=== PATIENT | male | born 1945 | race Caucasian/White ===

== ENCOUNTER 2018-05-29 08:07 | Outpatient (CLI) | payer MEDICARE, SELFPAY ==
[2018-05-29 10:10] LABS: Hemoglobin A1C 8.5 % (4.5-6.2)
[2018-05-29 10:53] LABS: Cholesterol 170 mg/dL (50-200); HDL Cholesterol 59 mg/dL (40-60); LDL CHOLESTEROL 84 mg/dL (<100); Triglyceride 153 mg/dL (30-150)
== END 2018-05-29 08:08 ==
PROVIDERS: PCP Family Medicine; Visit Provider Family Medicine
DX: E11.9 Type 2 diabetes mellitus without complications (principal)
CPT/HCPCS: 36415; 80061; 83721; 83036

== ENCOUNTER 2018-11-11 15:31 | Outpatient (CLI) | payer MEDICARE, SELFPAY ==
--- NOTE | 2018-11-11 15:36 | DI.RAD_ITS ---
SYMPTOM/DIAGNOSIS: NEW ONSET LT SCIATICA, M54.30 LUMBAR SPINE: AP, lateral and bilateral oblique views. There are five lumbar type vertebral bodies. There is normal alignment. No spondylolysis or spondylolisthesis is seen. There is mild narrowing of the L 4-5 disc space. Mild endplate osteophytes are present in the lumbar spine. There are degenerative changes of the facets. No acute fractures or subluxations are seen. Extensive calcification of the abdominal aorta is normal. IMPRESSION: Mild degenerative changes in the lumbar spine.
== END 2018-11-11 15:51 ==
PROVIDERS: PCP Family Medicine; Visit Provider Family Medicine
DX: M54.32 Sciatica, left side (principal); M47.816 Spondylosis without myelopathy or radiculopathy, lumbar region
CPT/HCPCS: 36415; 80048; 72110

== ENCOUNTER 2018-12-28 08:32 | Outpatient (CLI) | payer MEDICARE, SELFPAY ==
[2018-12-28 10:55] LABS: Anion Gap 8.2 mmol/L (3-11); BUN 14 mg/dL (7-18); CO2 27.8 mmol/L (21.0-32.0); CREATININE 1.12 mg/dL (0.70-1.30); Calcium 8.9 mg/dL (8.5-10.1); Chloride 102 mmol/L (98-107); Glucose 346 mg/dL (70-100); Potassium 4.4 mmol/L (3.5-5.1); Sodium 138 mmol/L (136-145)
== END 2018-12-28 08:52 ==
PROVIDERS: PCP Family Medicine; Visit Provider Family Medicine
DX: E11.9 Type 2 diabetes mellitus without complications (principal)
CPT/HCPCS: 36415; 80048

== ENCOUNTER 2019-03-01 14:05 | Emergency (ER) | payer MEDICARE, SELFPAY ==
[2019-03-01] VITALS (49 sets, daily range): BP systolic 139–211; BP diastolic 50–183; PULSE 55–84; RESP 11–38; TEMP 36.8; O2SAT 91–97
--- NOTE | 2019-03-01 14:56 | DI.RAD_ITS ---
SYMPTOMS/DIAGNOSIS: SHORTNESS OF BREATH, ? ACUTE DISEASE CHEST X-RAY, FRONTAL AND LATERAL VIEWS: Comparison is 03/02/11. The heart is normal in size. The lungs are clear. The mediastinal structures and pleura appear intact. IMPRESSION: Normal chest.
--- NOTE | 2019-03-01 14:57 | W.ED.GENAD ---
Discharge Plan Disposition Patient Disposition: [facility] Condition: Stable Discharge Details Chief Complaint: GenMedical Clinical Impression: NSTEMI (non-ST elevated myocardial infarction), CHF (congestive heart failure), Peripheral edema Primary Care Provider: Elliot Tabares ED Provider: Tresa Peña Home Meds and New Rx's Prescriptions: No Action Novolin N NPH U-100 Insulin 100 unit/mL suspension 125 unit Sub-Q BID MDD 300 units 30 Days Qty: 1 RF: 11 insulin syringe-needle U-100 1/2 mL 28 gauge syringe 1 ea Miscellaneous BID Qty: 100 RF: 6 cyclobenzaprine 10 mg tablet 10 mg PO TID PRN (Reason: muscle spasm) Qty: 90 RF: 0 aspirin [Aspir-81] 81 MG tablet,delayed release (DR/EC) 81 mg PO DAILY RF: 0 nitroglycerin [Nitrostat] 0.4 MG tablet, sublingual 0.4 mg Sublingual RF: 0 garlic 1 EACH capsule 1 ea PO DAILY RF: 0 acetaminophen [Tylenol] 325 MG tablet 650 mg PO Q6H PRN RF: 0 flaxseed oil 1,000 MG capsule 1,000 mg PO DAILY RF: 0 diltiazem HCl 180 MG capsule,extended release 24hr 180 mg PO DAILY 30 Days Qty: 30 RF: 11 blood-glucose meter [True Metrix Glucose Meter] 1 EACH misc Miscellaneous Qty: 1 RF: 0 True Metrix Glucose Test Strip 1 EACH strip 1 ea Miscellaneous BID Qty: 200 RF: 11 lancets 1 EACH misc 1 ea Miscellaneous BID Qty: 200 RF: 3 ranitidine HCl [Zantac Maximum Strength] 150 MG tablet 150 mg PO BID RF: 0 atenolol 50 MG tablet 50 mg PO DAILY 90 Days Qty: 90 RF: 3 zinc gluconate 100 MG tablet 200 mg PO DAILY RF: 0 magnesium oxide 250 MG tablet 250 mg PO BID Qty: 180 RF: 3 turmeric root extract 1 EACH capsule 1 ea PO DAILY RF: 0 lovastatin 40 mg tablet 40 mg PO DAILY Qty: 90 RF: 3 ergocalciferol (vitamin D2) [Vitamin D2] 50,000 unit capsule 50,000 unit PO Q7D Qty: 12 RF: 3 losartan 50 mg tablet 50 mg PO DAILY Qty: 90 RF: 3 Discharge Data Discharge Date/Time-TO BE ENTERED AT DEPARTURE: 03/01/19 19:21 Medical Decision Making 73-year-old male with a history of hypertension, fibromyalgia, diabetes, COPD, Meléndez's esophagus, atrial fibrillation and myocardial infarction who presents with bilateral leg swelling for 2 weeks and intermittent chest pain, shortness of breath and dizziness for the past 2 days. No complaints of chest pain or shortness of breath today. Referred from PCP office today for concern about heart failure. Blood pressure mildly elevated, oxygen saturation 93% on arrival, remainder vitals within normal limits. Lungs clear to auscultation. He has 2+ pitting edema bilateral lower extremities. EKG notes a rate of 63 and sinus with T wave inversion in V2 through V5 which is seen in previous EKG 2018. There appears to be a new right bundle branch block compared to previous EKG 2018. Labs ordered on arrival and note a troponin of 0.24 and BNP of 953. Chest x-ray negative. [facility] cardiology paged. Patient has no complaints of chest pain or shortness of breath at this time but with significant peripheral edema, will give a dose of 40 mg Lasix IV. He has no EKG changes so unsure at this time if the elevated troponin is due to CHF but concern for NSTEMI. 1729 --discussed with [facility] cardiology -although patient has peripheral edema, clinically does not appear to be due to acute CHF. Recommends treatment for NSTEMI. As patient is hemodynamically stable with no acute EKG changes, no indication for emergent transfer at this time but do accept patient for transfer once a bed available. Accepting physician Dr. Huggins. 1899 --repeat troponin downtrending to 0.22. Patient has a bed available now at [facility] and EMS now here to take him at this time. Patient denies any acute complaints at this time and is hemodynamically stable. Patient is agreeable with plan for transfer. Medical Records Medical records reviewed: Yes I reviewed the patient's medical records. Imaging Data Radiologic Study: Radiologist's impression: CHEST X-RAY, FRONTAL AND LATERAL VIEWS: Comparison is 03/02/11. The heart is normal in size. The lungs are clear. The mediastinal structures and pleura appear intact. IMPRESSION: Normal chest. Lab Data Lab results reviewed: Yes I reviewed the patient's lab results. Laboratory Tests Range/Units 03/01/19 03/01/19 03/01/19 14:50 14:50 14:50 WBC (4.4-10.8) k/cumm 5.57 RBC (4.50-6.00) m/cumm 4.48 L Hgb (13.5-17.5) g/dL 14.2 Hct (40.0-50.0) % 42.3 MCV (80-95) fL 94.4 MCH (27.0-33.0) pg 31.7 MCHC (32.0-36.0) g/dL 33.6 RDW (11.8-14.1) % 12.8 Plt Count (130-400) x1000/uL 159 MPV (8.0-11.0) fL 10.5 Immature Gran % 0.2 Neutrophils % 61.9 Lymphocytes % 20.5 Monocytes % 12.9 Eosinophils % 4.3 Basophils % 0.2 Absolute Neutrophils (1.2-6.7) k/cumm 3.45 Absolute Lymphocytes (1.2-3.4) k/cumm 1.14 L Absolute Monocytes (0.11-0.7) k/cumm 0.72 H Absolute Eosinophils (0.0-0.7) k/cumm 0.24 Absolute Basophils (0.0-0.2) k/cumm 0.01 PT (9.3-11.0) sec 10.3 INR (0.9-1.1) 1.0 APTT (21.0-31.4) sec 20.7 L Sodium (136-145) mmol/L 139 Potassium (3.5-5.1) mmol/L 4.0 Chloride (98-107) mmol/L 103 Carbon Dioxide (21.0-32.0) mmol/L 25.9 Anion Gap (3-11) mmol/L 10.1 BUN (7-18) mg/dL 14 Creatinine (0.70-1.30) mg/dL 1.12 Estimated GFR/1.73 m2 (mL/min/1.73m2) >= 60.00 Glucose (70-100) mg/dL 146 H Calcium (8.5-10.1) mg/dL 9.7 Magnesium (1.8-2.4) mg/dL 1.7 L Total Bilirubin (0.2-1.0) mg/dL 0.5 Conjugated Bilirubin (0.00-0.20) mg/dL 0.16 AST (15-37) U/L 35 ALT (12-78) U/L 48 Alkaline Phosphatase (46-116) U/L 87 Troponin I (0.00-0.06) ng/mL 0.24 H* NT-Pro-B Natriuret Pep ( - 299) pg/mL 953 H Total Protein (6.4-8.2) g/dL 7.0 Albumin (3.4-5.0) g/dL 3.2 L Lipase (73-393) U/L Range/Units 03/01/19 03/01/19 14:50 16:03 WBC (4.4-10.8) k/cumm RBC (4.50-6.00) m/cumm Hgb (13.5-17.5) g/dL Hct (40.0-50.0) % MCV (80-95) fL MCH (27.0-33.0) pg MCHC (32.0-36.0) g/dL RDW (11.8-14.1) % Plt Count (130-400) x1000/uL MPV (8.0-11.0) fL Immature Gran % Neutrophils % Lymphocytes % Monocytes % Eosinophils % Basophils % Absolute Neutrophils (1.2-6.7) k/cumm Absolute Lymphocytes (1.2-3.4) k/cumm Absolute Monocytes (0.11-0.7) k/cumm Absolute Eosinophils (0.0-0.7) k/cumm Absolute Basophils (0.0-0.2) k/cumm PT (9.3-11.0) sec INR (0.9-1.1) APTT (21.0-31.4) sec Sodium (136-145) mmol/L Potassium (3.5-5.1) mmol/L Chloride (98-107) mmol/L Carbon Dioxide (21.0-32.0) mmol/L Anion Gap (3-11) mmol/L BUN (7-18) mg/dL Creatinine (0.70-1.30) mg/dL Estimated GFR/1.73 m2 (mL/min/1.73m2) Glucose (70-100) mg/dL Calcium (8.5-10.1) mg/dL Magnesium (1.8-2.4) mg/dL Total Bilirubin (0.2-1.0) mg/dL Conjugated Bilirubin (0.00-0.20) mg/dL AST (15-37) U/L ALT (12-78) U/L Alkaline Phosphatase (46-116) U/L Troponin I (0.00-0.06) ng/mL 0.22 H* NT-Pro-B Natriuret Pep ( - 299) pg/mL Total Protein (6.4-8.2) g/dL Albumin (3.4-5.0) g/dL Lipase (73-393) U/L 47 L ECG Data Attestation: I personally reviewed and interpreted this ECG (s) as follows: Interpretation: Rate of 63, sinus, T wave inversion and less than [address] depression in V3 through V5 which is been seen in previous EKG. No acute ST elevation. Right bundle branch block which appears new compared to previous EKG. QTc 440. QRS 130. HPI General Mode of arrival: ambulatory. Date/Time Provider Initiated Documentation: 03/01/19 14:54. Limitations to Documentation: no limitations. Information obtained by: patient. HPI Narrative: Patient is a 73-year-old male with a history of OH, fiber myalgia, diabetes, hypertension, COPD, atrial fibrillation and Meléndez's esophagus who presents with bilateral ankle and leg swing for the past 2 weeks, and intermittent chest pain for the past 2 days. Patient was seen at his primary care doctor's office for a routine follow-up as well as the leg swelling and was referred here for further evaluation with concern for heart failure. Patient states 2 days ago he was walking in a store when he developed substernal and left-sided inferior and lateral chest pain followed by dizziness and shortness of breath. Patient states he had further intermittent episodes throughout the day for which was resolved with antacids. Patient admits to some intermittent chest pain shortness of breath as well yesterday but denies any of these complaints today. Patient states he feels fine at this time. Related Data Home Medications Medication Instructions Recorded Confirmed aspirin [Aspir 81] 81 mg PO DAILY tab-cap NS 03/21/15 03/01/19 garlic 1 ea PO DAILY NS 03/21/15 03/01/19 nitroglycerin [Nitrostat] 0.4 mg SUBLINGUAL NS 03/21/15 03/01/19 acetaminophen [Tylenol] 650 mg PO Q6H PRN tab-cap NS 08/03/17 03/01/19 flaxseed oil 1,000 mg PO DAILY NS 08/03/17 03/01/19 diltiazem HCl 180 mg PO DAILY 30 Days #30 05/10/18 03/01/19 tab-cap NS blood sugar diagnostic [True #200 strip 05/18/18 03/01/19 Metrix Glucose Test Strip] blood-glucose meter [True Metrix #1 05/18/18 03/01/19 Blood Glucose Mtr] lancets #200 ea 05/18/18 03/01/19 ranitidine HCl [Zantac] 150 mg PO BID tab 05/31/18 03/01/19 atenolol 50 mg PO DAILY 90 Days #90 tab-cap 06/10/18 03/01/19 NS magnesium oxide 250 mg PO BID #180 tab-cap 06/15/18 03/01/19 turmeric root extract 1 ea PO DAILY 06/15/18 03/01/19 zinc gluconate 200 mg PO DAILY 06/15/18 03/01/19 Novolin N NPH U- 100 Insulin 125 unit SUB-Q BID 30 Days #1 vial 08/30/18 03/01/19 isophane 100 unit/mL subcutaneous NS MDD 300 units susp insulin syringe U-100 with needle #100 syringe 08/30/18 03/01/19 1/2 mL 28 gauge lovastatin 40 mg tablet 40 mg PO DAILY #90 tab-cap NS 09/30/18 03/01/19 cyclobenzaprine 10 mg tablet 10 mg PO TID PRN #90 tab 11/11/18 03/01/19 ergocalciferol (vitamin D2) 50,000 50,000 unit PO Q7D #12 tab-cap 12/17/18 03/01/19 unit capsule losartan 50 mg tablet 50 mg PO DAILY #90 tab-cap 01/20/19 03/01/19 Previous Rx's Medication Instructions Recorded diltiazem HCl 180 mg PO DAILY 30 Days #30 05/10/18 tab-cap NS blood sugar diagnostic [True #200 strip 05/18/18 Metrix Glucose Test Strip] lancets #200 ea 05/18/18 atenolol 50 mg PO DAILY 90 Days #90 tab-cap 06/10/18 NS Novolin N NPH U- 100 Insulin 125 unit SUB-Q BID 30 Days #1 vial 08/30/18 isophane 100 unit/mL subcutaneous NS MDD 300 units susp insulin syringe U-100 with needle #100 syringe 08/30/18 1/2 mL 28 gauge lovastatin 40 mg tablet 40 mg PO DAILY #90 tab-cap NS 09/30/18 cyclobenzaprine 10 mg tablet 10 mg PO TID PRN #90 tab 11/11/18 ergocalciferol (vitamin D2) 50,000 50,000 unit PO Q7D #12 tab-cap 12/17/18 unit capsule losartan 50 mg tablet 50 mg PO DAILY #90 tab-cap 01/20/19 Allergies Allergy/AdvReac Type Severity Reaction Status Date / Time citric acid Allergy Intermediate hives Verified 03/01/19 14:20 pioglitazone HCl [From Actos] Allergy Intermediate hives Verified 03/01/19 14:20 valacyclovir HCl Allergy Intermediate hives Verified 03/01/19 14:20 [From Valtrex] General Stated Complaint: GenMedical SALVADOR: 3 Review of Systems Review of Systems All systems reviewed & are unremarkable except as noted in HPI and below Constitutional Reports as per HPI, Denies chills and Denies fever(s) Eyes Denies blurry vision ENT Reports dizziness, Denies sore throat and Denies throat swelling Cardiovascular Reports chest pain and Reports dyspnea Respiratory Denies cough and Reports dyspnea Gastrointestinal Denies abdominal pain, Denies diarrhea and Denies vomiting Genitourinary Denies hematuria and Denies dysuria Musculoskeletal Denies back pain and Denies numbness Integumentary/Breasts Denies lesions and Denies rash Neurologic Reports dizziness, Denies focal weakness and Denies numbness Allergic/Immunologic Denies throat swelling [facility] Medical History Vitamin D deficiency (Chronic 09/10/17) Steatosis of liver (Chronic 09/10/17) Renal disease (Chronic 09/10/17) Primary fibromyalgia syndrome (Chronic 09/10/17) Osteoarthritis (Chronic 09/10/17) Neuritis (Chronic 09/10/17) Metabolic disease (Chronic 09/10/17) Malignant neoplasm of esophagus (Resolved 09/10/17) OH (myocardial infarction) (Chronic 09/10/17) Hyperlipidemia (Chronic 09/10/17) Hearing loss (Chronic 09/10/17) Essential hypertension (Chronic 09/10/17) Dysphagia (Chronic 09/10/17) Diabetic neuropathy (Chronic 09/10/17) Diabetes mellitus (Chronic 09/10/17) Chronic obstructive pulmonary disease (Chronic 09/10/17) Meléndez's esophagus without dysplasia (Chronic 05/20/18) Atrial fibrillation (Chronic 09/10/17) 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/10/17) Actinic keratosis (Chronic 09/10/17) 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) Atrial fibrillation Philip's palsy Chronic obstructive lung disease Coronary atherosclerosis Diabetes mellitus Dysphagia Hyperlipidemia Hypertensive disorder Malignant tumor of esophagus Myocardial infarction Surgical History EDG x/BX (~12/2017) EGD Intercostal Nerve Block (L) (01/24/13) Knee Surgery (10/26/78) Port Placement and removal (~2011) Thoracoscopy (02/04/13) Family History Other Myocardial infarction Neoplasm Social History Smoking/Tobacco Use Status: Former Tobacco Use Alcohol Intake: current Alcohol Intake frequency: a few times a week Alcohol type: hard liquor Adopted: No Foster care: No Housing: house Number of Children: 3 number of grandchildren: 10 Exam Const General: cooperative and no acute distress HENMT Head: normal to inspection Face and sinus: normal facial exam Eyes General: appearance normal, both eyes and all related structures EOM: EOM intact bilaterally Neck Neck: normal visual inspection and No submandibular swelling Lymphatic: no lymphadenopathy noted Chest Chest: normal inspection of the chest and no tenderness Resp Effort & Inspection: normal respiratory effort and able to speak in complete sentences Auscultation: clear to auscultation bilaterally Cardio Rate: regular rate Rhythm: regular rhythm GI Inspection: normal to inspection Palpation: soft, not firm, not rigid and nontender Auscultation: normal bowel sounds Skin General skin exam: no rashes or lesions noted Neuro General: alert, awake and oriented x3 Cognition: normal cognition Speech: speech normal Motor: muscle tone normal throughout Sensory Exam: no sensory deficits noted Extrem General: normal to inspection, full ROM and edema Laterality: bilateral (2+ pitting) Psych Appearance: grossly normal Mental Status: mental status grossly normal Speech and Movement: speech and movement normal Affect: normal affect Course Vital Signs Temperature 98.2 F 03/01/19 14:18 Pulse 64 03/01/19 14:18 Respiratory Rate 20 03/01/19 14:18 Blood Pressure 149/67 H 03/01/19 14:18 Pulse Oximetry 93 L 03/01/19 14:18 Temperature 98.2 F 03/01/19 14:18 Temperature Source Temporal Artery Scan 03/01/19 14:18 Pulse 64 03/01/19 14:18 Respiratory Rate 20 03/01/19 14:21 Respiratory Effort Non-Labored 03/01/19 14:21 Respiratory Depth Normal 03/01/19 14:21 Respiratory Pattern Normal 03/01/19 14:21 Blood Pressure 149/67 H 03/01/19 14:18 Blood Pressure Position Sitting 03/01/19 14:18 Pulse Oximetry 93 L 03/01/19 14:18 Oxygen Delivery Method Room Air 03/01/19 14:18 Oxygen Flow Rate 0 03/01/19 14:18 Pain Level 0 03/01/19 14:18
[2019-03-01 15:00] LABS: Abs Immature Grans 0.01 k/cumm (0.0-0.09); Absolute Basophil Count 0.01 k/cumm (0.0-0.2); Absolute Eosinophil Count 0.24 k/cumm (0.0-0.7); Absolute Lymphocyte Count 1.14 k/cumm (1.2-3.4); Absolute Monocyte Count 0.72 k/cumm (0.11-0.7); Absolute Neutrophil Count 3.45 k/cumm (1.2-6.7); Basophils % 0.2; Eosinophils % 4.3; HCT 42.3 % (40.0-50.0); HGB 14.2 g/dL (13.5-17.5); Immature Grans % 0.2; Lymphocytes % 20.5; Mean Corp. HGB Concentration 33.6 g/dL (32.0-36.0); Mean Corpuscular Hemoglobin 31.7 pg (27.0-33.0); Mean Corpuscular Volume 94.4 fL (80-95); Mean Platelet Volume 10.5 fL (8.0-11.0); Monocytes % 12.9; Neutrophils % 61.9; Platelet Count 159 x1000/uL (130-400); RBC 4.48 m/cumm (4.50-6.00); RBC Distribution Width 12.8 % (11.8-14.1); White Blood Cell Count 5.57 k/cumm (4.4-10.8)
[2019-03-01 15:18] LABS: PTT Activated 20.7 sec (21.0-31.4); Prothrombin Time 10.3 sec (9.3-11.0)
[2019-03-01 15:20] LABS: ALT 48 U/L (12-78); AST 35 U/L (15-37); Albumin 3.2 g/dL (3.4-5.0); Alkaline Phosphatase 87 U/L (46-116); Anion Gap 10.1 mmol/L (3-11); BUN 14 mg/dL (7-18); Bilirubin, Total 0.5 mg/dL (0.2-1.0); CO2 25.9 mmol/L (21.0-32.0); CREATININE 1.12 mg/dL (0.70-1.30); Calcium 9.7 mg/dL (8.5-10.1); Chloride 103 mmol/L (98-107); Glucose 146 mg/dL (70-100); Magnesium 1.7 mg/dL (1.8-2.4); Sodium 139 mmol/L (136-145)
[2019-03-01 15:24] LABS: Troponin I 0.24 ng/mL (0.00-0.06)
[2019-03-01 15:43] LABS: Bilirubin, Direct 0.16 mg/dL (0.00-0.20); NT-proBNP 953 pg/mL
[2019-03-01] MEDS: Furosemide 40 MG/4 ML VIAL IVP (16:51)
[2019-03-01 17:11] LABS: Lipase 47 U/L (73-393)
[2019-03-01] MEDS: Aspirin 325 MG TAB PO (17:57)
[2019-03-01] MEDS: Clopidogrel 300 MG TAB PO (17:58)
[2019-03-01 18:49] LABS: Troponin I 0.22 ng/mL (0.00-0.06)
== END 2019-03-01 19:21 | disposition short-term general hospital (02) ==
PROVIDERS: Emergency Provider Physician Assistant; PCP Family Medicine
DX: I21.4 Non-ST elevation (NSTEMI) myocardial infarction (principal); R60.0 Localized edema; I50.9 Heart failure, unspecified; I45.10 Unspecified right bundle-branch block; E11.22 Type 2 diabetes mellitus with diabetic chronic kidney disease; E11.40 Type 2 diabetes mellitus with diabetic neuropathy, unspecified; I13.0 Hypertensive heart and chronic kidney disease with heart failure and stage 1 through stage 4 chronic kidney disease, or unspecified chronic kidney disease; J44.9 Chronic obstructive pulmonary disease, unspecified; N18.9 Chronic kidney disease, unspecified; Z87.891 Personal history of nicotine dependence
CPT/HCPCS: 36415; 80053; 80076; 83690; 93005; 96365; 96375; 96376; 99285; 71046; 83735; 83880; 84484; 85025; 85610; 85730; 93010; J1940